=== PATIENT | female | born 1965 | race Caucasian/White ===

== ENCOUNTER 2017-02-17 05:01 | Inpatient (IN) | payer BC ==
[2017-02-08 15:11] LABS: BASO % 0.4 %; BASO ABS # 0.02 K/uL (0-0.2); COMPLETE YES; EOS % 1.3 %; HEMATOCRIT 41.6 % (37-47); IG% 0.2 %; LYMPH ABS # 1.18 K/uL (1.2-3.4); MEAN CELL VOLUME 89.7 fL (80-100); MEAN CORPUSCULAR HGB CONC 33.4 g/dl (32-36); MEAN PLATELET VOLUME 11.4 fL (7.4-10.4); MONO % 8.9 %; NEUT % 64.2 %; PLATELET COUNT 169 K/uL (130-400); RED BLOOD COUNT 4.64 M/uL (4.2-5.4); WHITE BLOOD COUNT 4.72 K/uL (4.8-10.8)
[2017-02-08 15:26] LABS: PROTHROMBIN TIME (PATIENT) 10.2 SECONDS (9.0-12.0)
[2017-02-08 15:31] LABS: ALT/SGPT 32 U/L (12-78); AST/SGOT 14 U/L (15-37); BLOOD UREA NITROGEN 17 mg/dl (7-18); BUN/CREATININE RATIO 16.7 (10-20); CALCIUM 9.2 mg/dl (8.5-10.1); CARBON DIOXIDE 23 mmol/L (21-32); CHLORIDE 109 mmol/L (98-107); CREATININE 0.99 mg/dl (0.60-1.20); GLUCOSE 108 mg/dl (70-99); POTASSIUM 4.4 mmol/L (3.5-5.1); SODIUM 140 mmol/L (136-145)
--- NOTE | 2017-02-08 15:32 | PAT Medication Instructions ---
Service Date Feb 08, 2017. Current Home Medication List Alprazolam (Alprazolam), 0.25 MG PO TID PRN for Anxiety Clobetasol Propionate (Clobetasol Propionate Cream 0.05%), 1 APPLN EXT PRN Epinephrine (Epipen), 0.3 MG IM UD PRN for ALLERGIC REACTION Escitalopram Oxalate (Lexapro), 10 MG PO QAM Fish Oil ([place]-3), 1 CAP PO PRN Fluticasone-Salmeterol 45/21 Mcg (Advair Hfa 45/21 Mcg), 1 PUFF INH BID Hydroxychloroquine Sulfate (Plaquenil), 200 MG PO BID Loratadine (Claritin), 10 MG PO DAILY PRN for Allergies Multiple Vitamins W/ Minerals (Emergen-C Vitamin C), 1 TAB PO PRN Multivitamin (Multivitamin), 1 TAB PO PRN Pantoprazole (Protonix), 40 MG PO BID Medication Instructions For Your Scheduled Surgery - Check with surgeon and brim buster for instructions: Hydroxychloroquine Sulfate (Plaquenil), 200 MG PO BID - Hold the following medications starting 02/08/17: Fish Oil ([place]-3), 1 CAP PO PRN - Hold the following medications 24 hours prior to surgery: Clobetasol Propionate (Clobetasol Propionate Cream 0.05%), 1 APPLN EXT PRN - Hold the following medications the morning of surgery: Loratadine (Claritin), 10 MG PO DAILY PRN for Allergies Multiple Vitamins W/ Minerals (Emergen-C Vitamin C), 1 TAB PO PRN Multivitamin (Multivitamin), 1 TAB PO PRN - Take the following medications the morning of surgery with a sip of water: Pantoprazole (Protonix), 40 MG PO BID Fluticasone-Salmeterol 45/21 Mcg (Advair Hfa 45/21 Mcg), 1 PUFF INH BID Epinephrine (Epipen), 0.3 MG IM UD PRN for ALLERGIC REACTION (if needed) Escitalopram Oxalate (Lexapro), 10 MG PO QAM Alprazolam (Alprazolam), 0.25 MG PO TID PRN for Anxiety (if needed) - Take the following medications as scheduled the night before surgery: Pantoprazole (Protonix), 40 MG PO BID Loratadine (Claritin), 10 MG PO DAILY PRN for Allergies (if needed) Fluticasone-Salmeterol 45/21 Mcg (Advair Hfa 45/21 Mcg), 1 PUFF INH BID Epinephrine (Epipen), 0.3 MG IM UD PRN for ALLERGIC REACTION (if needed) Alprazolam (Alprazolam), 0.25 MG PO TID PRN for Anxiety (if needed) If you have any questions please call us at [phone] or [phone] or [phone]
[2017-02-08 15:34] LABS: ALB/GLOB RATIO 1.3 (0.9-2); ALKALINE PHOSPHATASE 71 U/L (45-117)
[2017-02-17] VITALS (8 sets, daily range): BP systolic 104–122; BP diastolic 57–72; PULSE 88–106; TEMP 36.4–37; O2SAT 90–97; Ht 162.6 cm; Wt 78.4 kg
[~2017-02-17] VITALS: Ht 162.6 cm; Wt 78.4 kg
[~2017-02-17 05:01] MED LIST: CLBCRM30 EXT; EPP3/2 IM; ESCI1TAB9 PO; FLUT45AE INH; HYDR200T5 PO; LORA10TA51 PO; MULT-506 PO; MULT1CHW84 PO; OMEG10007 PO; PANT40TA PO; XNX25 PO
[2017-02-17] MEDS ORDERED: LACTATED RINGER'S 1000ML 1,000 ML IV SCH ×2 (06:00→10:57)
[2017-02-17] MEDS: LACTATED RINGER'S 1000ML 1,000 ML IV SCH (06:00)
[2017-02-17] MEDS ORDERED: CEFAZOLIN 2000MG IV PUSH 10 ML IV SCH (06:00)
[2017-02-17] MEDS ORDERED: ALBUTEROL HFA 8 GM INHALER INH SCH (06:00)
[2017-02-17] MEDS ORDERED: MIDAZOLAM HCL 1 MG/ML 2ML VIAL ONE (06:53)
[2017-02-17] MEDS ORDERED: LIDOCAINE 2% 20 MG/ML 5ML SYR IV ONE (06:53)
[2017-02-17] MEDS ORDERED: ROCURONIUM BROMIDE 10 MG/ML 5 ML VIAL IV ONE ×2 (06:53→08:47)
[2017-02-17] MEDS ORDERED: PROPOFOL IV EMULSION 10 MG/ML 20 ML VIAL IV ONE (06:53)
[2017-02-17] MEDS ORDERED: FENTANYL CITRATE INJ 50 MCG/1 ML 2 ML VIAL ONE ×2 (06:53→10:22)
--- NOTE | 2017-02-17 06:55 | History & Physical Bridge Note ---
H&P Re-Evaluation Bridge Note: I have examined the patient, reviewed the History & Physical and in the interval since the performance of the History & Physical I have noted the following changes of clinical significance: No changes noted
[2017-02-17] MEDS ORDERED: MINERAL OIL LIGHT 10 ML BTL ONE (07:08)
[2017-02-17] MEDS ORDERED: BUPIVACAINE 0.5 % 5 MG/1 ML MPF 30ML VIAL ONE (07:08)
[2017-02-17] MEDS ORDERED: METHYLENE BLUE 0.5% 10 ML VIAL ONE (07:08)
[2017-02-17] MEDS ORDERED: DEXAMETHASONE SOD INJ 4 MG/ML VIAL ONE (08:47)
[2017-02-17] MEDS ORDERED: ONDANSETRON INJ 2 MG/ML 2 ML VIAL ONE (08:47)
[2017-02-17] MEDS ORDERED: GLYCOPYRROLATE INJ 0.2 MG/ML VIAL ONE (08:48)
[2017-02-17] MEDS ORDERED: NEOSTIGMINE METHYLSULFATE 5 MG/5 ML SYR ONE (08:48)
[2017-02-17] MEDS ORDERED: CEFAZOLIN SOD 1 GM VIAL ONE (10:25)
[2017-02-17] MEDS ORDERED: MAGNESIUM HYDROXIDE SUSP 30 ML UDC PO PRN (11:00)
[2017-02-17] MEDS ORDERED: OXYCODONE/ACETAMINOPHEN 5-325 TAB PO PRN ×2 (11:00)
[2017-02-17] MEDS ORDERED: MEPERIDINE HCL 50 MG/ML CARP IV PRN ×2 (11:00)
[2017-02-17] MEDS ORDERED: PROMETHAZINE HCL INJ 25 MG in SODIUM CHLORIDE 0.9% 50ML 50 ML IV PRN (11:00)
[2017-02-17] MEDS ORDERED: ONDANSETRON INJ 2 MG/ML 2 ML VIAL IV PRN (11:00)
[2017-02-17] MEDS ORDERED: ACETAMINOPHEN 325 MG TAB PO PRN (11:00)
[2017-02-17] MEDS ORDERED: PROMETHAZINE HCL INJ 12.5 MG in SODIUM CHLORIDE 0.9% 50ML 50 ML IV PRN ×2 (11:00→11:30)
[2017-02-17] MEDS ORDERED: BISACODYL 10 MG SUPP PR PRN (11:00)
--- NOTE | 2017-02-17 11:01 | [facility] Post Operative Brief Note ---
Immediate Operative Summary Operative Date Feb 17, 2017. Pre-Operative Diagnosis multiple uterine fibroids, right lower quadrant pain and pelvic pain; menopause Post-Operative Diagnosis multiple uterine fibroids, right lower quadrant pain and pelvic pain; menopause Procedure(s) Performed EUA, Total Laparoscopic Hysterectomy, Bilateral Salpingo-Oophorectomy, Cystoscopy; Lysis of Adhesions Surgeon Dr. Keller Soldering Machine Tender Surgeon(s) Dr. Soniya Grimes, Dr. Jorge Parisi Estimated Blood Loss 50mL Findings Enlarged uterus with multiple fibroids Normal tubes and ovaries Specimens A: uterus & Cervix; right Fallopian tube & right ovary; fibroid B: left fallopian tube & left ovary Anesthesia GEAT Complication(s) None Disposition Recovery Room / PACU
[2017-02-17] MEDS ORDERED: HYDROmorphone INJ 2 MG/ML SYR/VIAL ONE (11:16)
[2017-02-17] MEDS ORDERED: HYDROmorphone INJ 1 MG/ML SYR IV PRN (11:30)
[2017-02-17] MEDS ORDERED: FLUMAZENIL 0.1 MG/1 ML 10 ML VIAL IV PRN (11:30)
[2017-02-17] MEDS ORDERED: ATROPINE SULFATE 0.1 MG/ML 5ML SYR IV PRN (11:30)
[2017-02-17] MEDS ORDERED: NURSING VERBAL MED ORDER ONE (11:30)
[2017-02-17] MEDS ORDERED: LABETALOL HCL IV 5 MG/ML 20ML IV PRN (11:30)
[2017-02-17] MEDS ORDERED: NALOXONE HCL 0.4 MG/1 ML VIAL/CARP IV PRN (11:30)
[2017-02-17] MEDS ORDERED: EpHEDrine SULFATE INJ 50 MG/ML AMP IV PRN (11:30)
--- NOTE | 2017-02-17 12:19 | OPERATIVE REPORT ---
DATE OF OPERATION: 02/17/2017 PREOPERATIVE DIAGNOSIS: The patient is a 51-year-old G0 postmenopausal female with multiple uterine fibroids, right lower quadrant pain, pelvic pain. POSTOPERATIVE DIAGNOSIS: Same and adhesions of the descending colon to the left side of pelvic wall. PROCEDURE: Examination under anesthesia, total laparoscopic hysterectomy, bilateral salpingo-oophorectomy, lysis of adhesions and cystoscopy. SURGEON: Dr. Abraham. DIESEL DRAGLINE OPERATOR: Dr. Grimes and Dr. Parisi. ESTIMATED BLOOD LOSS: 50. SPECIMENS: Uterus with fibroids, fallopian tubes and ovaries. ANESTHESIA: General endotracheal. COMPLICATIONS: None. FINDINGS: Examination under anesthesia revealed an irregular shaped uterus with right adnexal fullness and a narrow introitus, intact hymen, and the intraoperative findings enlarged uterus with multiple fibroids. Uterus is about 8 weeks' size. There were multiple subserosal intramural fibroids on the fundus as well as in the posterior wall and there is separate pedunculated subserosal fibroid which was attached to the right lower posterior uterine wall. It was larger than the uterus about 10 x 8 x 6 cm and the fallopian tubes, and ovaries appeared to be normal. There was adhesion of the descending left side colon to the left pelvic sidewall and left side of the abdominal wall. OPERATION AND FINDINGS: PROCEDURE: The patient was taken to the operating room where general anesthesia was given without difficulty. She was placed in dorsal lithotomy position and prepared and draped in usual sterile fashion. Examination under anesthesia was done with the above findings and the speculum was placed in the patient's vagina. Cervix was visualized, grasped with single tooth tenaculum. Uterus was sounded to be 8 cm and then a small VCare manipulator was placed into the uterus and its balloon was inflated and it was checked to be in the uterus. Green cap was attached to the cervix with sutures at 12 and 6 o'clock position and then a blue cap is secured to over the green cap to provide it in its place over the cervix and locked onto the cervix. Then the bladder was placed with a Vaughn catheter. Gloves were changed. Attention was turned to the patient's abdomen where a periumbilical skin incision was made and the incision was carried through underlying layer of fascia with the tip of hemostat. The rectus fascia was visualized, grasped with Kelly clamps x2 and it was punctured with the Veress needle which was attached to a syringe and normal saline was free flowing through the Veress needle and it suctioned clear saline fluid. CO2 gas was attached to the Veress needle. Pneumoperitoneum was obtained with CO2 gas and the abdominal pressure was set to 15 mmHg. Then the Veress needle was removed and ____ trocar was used to enter through the fascia under direct visualization. Abdominal cavity was entered and inspection of the abdomen showed normal upper abdomen, normal bowel surfaces and omentum and the uterus with the above findings. The patient was placed in the Trendelenburg position and then uterus was brought to the midline with the manipulator. Two more trocars were placed on the right and left lower quadrants of the abdomen under direct visualization and then on the right side the right fallopian tube and ovary were visualized and grasped gently. Right infundibulopelvic ligament was identified and it was coagulated 3 times with the LigaSure device and cut and then the incision was brought to the broad ligament, which was already again coagulated and cut with LigaSure device. The uterine artery was skeletonized, peritoneal pieces were cut and coagulated and then broad ligament anteriorly was incised with the LigaSure device and the bladder was taken down gently. Then attention was turned to the left side of the uterus and again left round ligament was identified, grasped with LigaSure device, cut and coagulated x3 and then the incision was brought down to the broad ligament, which was also coagulated and cut with LigaSure device. The right infundibulopelvic ligament was identified, grasped with LigaSure device, coagulated 3 times and cut and then all the adnexa on the left side was brought down with the LigaSure device. The bladder flap was continued until the right side anterior vesicouterine peritoneum was incised with the LigaSure device and the bladder was brought down gently with grasper. Then uterine artery was identified. It was coagulated and cut with the LigaSure device and then it was done on the same right side. Uterine artery was identified, coagulated and cut with the LigaSure device. The ureters were visualized to be peristalsing on both sides during whole surgery. Cardinal ligaments were coagulated and cut with the LigaSure device bilaterally. The extra tissues were cleaned from the cervix and then to have better visualization, the ____ fibroid on the right uterine side was identified, dehisced peddle was coagulated and cut with the LigaSure device. It was left into the pelvis and then we were able to see the posterior vesicouterine ligaments, posterior side of uterus. There was a fibroid on the posterior lower uterus close to the left vesicouterine ligament. It was removed with the grasper and then we were able to feel the edge of the VCare from the vagina and with the tip of the LigaSure device the vagina was incised circumferentially around the cervix. The whole uterus was excised completely and then the uterine manipulator was removed. Vagina was placed with sponge in a glove to provide pneumoperitoneum. Then the uterine cuff was hemostatic. The pelvis was irrigated with warm normal saline and suctioned. Good hemostasis was achieved. The uterus was brought to the vaginal cuff and it was held from vagina with a single tooth tenaculum and it was removed from the vagina without difficulty. The pedunculated fibroid which was larger than the uterus and it was also brought to the vaginal cuff and it was grasped from down in the vagina and then removed from the vagina and they were all sent to pathology. The pelvis was irrigated with warm normal saline and suctioned. The vaginal cuff was repaired with #0 absorbable sutures with EndoStitch device started from right corner, brought to the left corner continuously and Lapra-Tys were placed on the sutures to provide laparoscopic knots. Then the middle of the cuff was sutured again with [id number] stitches to provide better seal and then again cuff was irrigated with warm normal saline and suctioned. All of the pelvis was inspected to be normal. Bowels were inspected to be normal. Adhered colon on the left side of the abdominal and pelvic sidewalls adhesion was gently lysed with laparoscopic scissors close to the abdominal wall and the bowel was brought down to the abdomen. Abdomen and pelvis inspected again to be hemostatic and normal. The patient was given IV methylene blue and then attention was turned to the patient's perineum. Cystoscopy was done with cystoscope and bladder was inspected to be normal. No injuries were seen. Both ureters were visualized to be ejecting urine bilaterally and cystoscopy was ended. The patient was placed with a new Vaughn catheter and then there was noted to be a small first degree laceration in the perineum at 12 o'clock position where the hymenal ring was which was repaired with 3-0 Vicryl in a running fashion. Excellent hemostasis was achieved. Gloves were changed. Attention was turned to the patient's abdomen. Trocars were removed. The fascial incisions were repaired with 0 Vicryl with ____ and the skin incisions were closed with 4-0 Monocryl in a subcuticular fashion. The patient tolerated the procedure well. Sponge, lap, needle and instrument counts were correct x2. The patient was given 2 grams of cefazolin at the beginning of surgery and at the end of her surgery. She was taken to recovery room in stable condition. No complications happened. I was present during whole procedure. I attest to the content of the Intraoperative Record and any orders documented therein. Any exception s are noted below.
[2017-02-17] MEDS ORDERED: OXYC-57 PO (12:43)
[2017-02-17] MEDS ORDERED: METO-157 PO (12:44)
[2017-02-17] MEDS ORDERED: MTR600X PO (12:44)
--- NOTE | 2017-02-17 12:45 | Discharge Instructions ---
Discharge Instructions Date of Service Feb 17, 2017. Admission Reason for Admission: Fibroid Uterus, Pelvic Pain Discharge Discharge Diagnosis / Problem: Total laparoscopic hysterectomy, JOSE C, MONO Discharge Goals Goal(s): Routine recovery after surgery Activity Recommendations Activity Limitations: as noted below Lifting Limitations: no more than 10 pounds Exercise/Sports Limitations: until after follow-up appointment May Resume Sexual Activity: after follow-up appointment (6 weeks) Shower/Bathe: keep incision dry Driving or Machine Use: SPECIAL CARE INSTRUCTIONS: * Check temperature twice daily for one week. Report any elevation over 100.4 degrees Fahrenheit (38.0 degrees Celsius). * Call office in the next few days for return appointment. * You may experience some vaginal spotting and/or bleeding, this is normal for one or two weeks and should not alarm you. * Post-operative discomfort may consist of a sore throat, a "bloated" feeling and pain in the shoulders. These are normal symptoms which usually only last for two or three days. FOLLOW UP VISIT: Keep any scheduled doctor appointments. 2 weeks and 6 weeks . Current Hospital Diet Patient's current hospital diet: Discharge Diet Recommended Diet: Regular Diet Procedures Procedures Performed: EUA, Total Laparoscopic Hysterectomy, Bilateral Salpingo-Oophorectomy, Cystoscopy; Lysis of Adhesions Pending Studies Studies pending at discharge: no Medical Emergencies . Who to Call and When: Medical Emergencies: If at any time you feel your situation is an emergency, please call 911 immediately. . Non-Emergent Contact Non-Emergency issues call your: Surgeon Call Non-Emergent contact if: temperature is above 100.5, your pain is not controlled, your pain is worsening, your pain is unusual for you, wound has increased drainage, wound has increased redness, wound has increased pain, you have any medication questions . . "Provider Documentation" section prepared by Abbie Keller. . VTE Core Measure Inpt VTE Proph given/why not?: Treatment not indicated
--- NOTE | 2017-02-17 12:49 | OB/GYN Progress Note ---
[facility] Progress Note Date of Service: Feb 17, 2017. Postop check Patient is seen and examined Feels well, no complaints," little sore" Pain is under control with meds No CP/ SOB/ Dizziness/ N&V/ VB/ Leg pain Not OOB yet Explained about the surgery and findings Shown her pictures Date Time Temp Pulse Resp B/P (MAP) Pulse Ox O2 Delivery O2 Flow Rate FiO2 02/17/17 11:42 36.4 95 16 119/81 (100) 97 Nasal Cannula 2 02/17/17 11:31 103 14 120/78 92 02/17/17 11:31 103 14 02/17/17 11:26 103 14 02/17/17 11:26 103 14 124/73 92 02/17/17 11:21 100 21 02/17/17 11:21 100 21 126/76 93 02/17/17 11:16 95 20 117/88 99 02/17/17 11:16 96 20 02/17/17 11:11 102 17 114/71 96 02/17/17 11:11 101 17 02/17/17 11:06 101 53 02/17/17 11:06 101 53 119/76 98 02/17/17 11:06 36.8 101 15 119/76 (83) 97 Oxymask 10 02/17/17 05:45 37.0 89 20 112/68 (83) 94 Room Air 8-Hour Column 02/17/17 02/18/17 02/18/17 16:00 00:00 08:00 Intake Total 3800 ml Output Total 800 ml Balance 3000 ml 24-Hour Column 02/18/17 08:00 Intake Total 3800 ml Output Total 800 ml Balance 3000 ml PE: General: Alert, orientedx3, NAD CVS: S1S2 RRR Lungs: CTAB Abd: soft, NT, ND, BS+, Incisions C/D/I No VB Gimenez draining clear urine Ext: NT, no edema, SCD's on AP: 51 yo female s/p EUA, TLH, BSO, Cystoscopy, MONO , pod#0 VSS Afebrile doing well Continue to routine postop care Encourage PO intake, may ambulate D/C gimenez this afternoon Anticipate DC tomorrow
--- NOTE | 2017-02-17 12:54 | Anesthesiology Progress Note ---
Anesthesia Post Op Note Date & Time Feb 17, 2017 at 12:53 Vital Signs Pain Intensity: 0 Vital Signs Past 12 Hours Date Time Temp Pulse Resp B/P (MAP) Pulse Ox O2 Delivery O2 Flow Rate FiO2 02/17/17 11:42 36.4 95 16 119/81 (100) 97 Nasal Cannula 2 02/17/17 11:31 103 14 120/78 92 02/17/17 11:31 103 14 02/17/17 11:26 103 14 02/17/17 11:26 103 14 124/73 92 02/17/17 11:21 100 21 02/17/17 11:21 100 21 126/76 93 02/17/17 11:16 95 20 117/88 99 02/17/17 11:16 96 20 02/17/17 11:11 102 17 114/71 96 02/17/17 11:11 101 17 02/17/17 11:06 101 53 02/17/17 11:06 101 53 119/76 98 02/17/17 11:06 36.8 101 15 119/76 (83) 97 Oxymask 10 02/17/17 05:45 37.0 89 20 112/68 (83) 94 Room Air Notes Mental Status: alert / awake / arousable, participated in evaluation Pt Amnestic to Procedure: Yes Nausea / Vomiting: adequately controlled Pain: adequately controlled Airway Patency, RR, SpO2: stable & adequate BP & HR: stable & adequate Hydration State: stable & adequate Anesthetic Complications: no major complications apparent
[2017-02-17] MEDS: IBUPROFEN 600 MG TAB PO PRN (15:08)
[2017-02-17 20:36] LABS: HEMATOCRIT 35.6 % (37-47)
[2017-02-17] MEDS: DOCUSATE SODIUM 100 MG CAP PO SCH (21:00)
[2017-02-17] MEDS: KETOROLAC TROMETHAMINE 30 MG/ML VIAL IV. PRN (21:20)
--- NOTE | 2017-02-17 21:57 | OB/GYN Progress Note ---
PICK UP ATTENDANT Progress Note Date of Service: Feb 17, 2017. Patient is seen and examined Feels better, no complaints, just tired Pain is under control with meds, Received Demerol at 5 pm and then Toradol 30 min ago. No CP/ SOB/ Dizziness/ N&V/ VB/ Leg pain Not OOB yet Tolerating clears, ice cream Vomited Motrin She is uncomfortable with gimenez Desires to be d/c'd tonight Date Time Temp Pulse Resp B/P (MAP) Pulse Ox O2 Delivery O2 Flow Rate FiO2 02/17/17 15:15 36.7 106 20 122/72 (89) 97 Room Air 02/17/17 15:15 97 Room Air 02/17/17 14:15 37.0 95 20 109/65 (80) 94 Room Air 02/17/17 13:15 36.4 99 18 111/64 (80) 92 Room Air 02/17/17 12:45 36.7 94 18 119/71 (87) 93 Room Air 02/17/17 12:15 90 Room Air 02/17/17 12:15 36.6 93 16 120/70 (87) 90 Room Air 02/17/17 12:15 90 Room Air 02/17/17 11:42 36.4 95 16 119/81 (100) 97 Nasal Cannula 2 02/17/17 11:31 103 14 120/78 92 02/17/17 11:31 103 14 02/17/17 11:26 103 14 02/17/17 11:26 103 14 124/73 92 02/17/17 11:21 100 21 02/17/17 11:21 100 21 126/76 93 02/17/17 11:16 95 20 117/88 99 02/17/17 11:16 96 20 02/17/17 11:11 102 17 114/71 96 02/17/17 11:11 101 17 02/17/17 11:06 101 53 02/17/17 11:06 101 53 119/76 98 02/17/17 11:06 36.8 101 15 119/76 (83) 97 Oxymask 10 02/17/17 05:45 37.0 89 20 112/68 (83) 94 Room Air Last VS: 1954: 36.9, P: 96, 113/68, R 18 8-Hour Column 02/17/17 02/18/17 02/18/17 16:00 00:00 08:00 Intake Total 4000 ml Output Total 1175 ml Balance 2825 ml 24-Hour Column 02/18/17 08:00 Intake Total 4000 ml Output Total 1175 ml Balance 2825 ml PE: General: Alert, orientedx3, NAD CVS: S1S2 RRR Lungs: CTAB Abd: soft, NT, ND, BS+, Incisions C/D/I No VB Ext: NT, no edema, SCD's on Last 24 Hours Test 02/17/17 06:27 02/17/17 20:21 Bedside Urine Test NEG Hemoglobin 12.6 g/dL Hematocrit 35.6 % AP: 51 yo female s/p EUA, TLH, BSO, MONO, Cysto , pod#0 VSS Afebrile doing well Continue to routine postop care Encourage PO intake, may ambulate D/C gimenez tonight Anticipate DC tomorrow
[2017-02-18 02:10] VITALS: BP 104/57; PULSE 88; TEMP 37; O2SAT 95
[2017-02-18 03:25] VITALS: BP 110/69; PULSE 81; TEMP 36.7; O2SAT 93
[2017-02-18] MEDS: KETOROLAC TROMETHAMINE 30 MG/ML VIAL IV. PRN (03:59)
[2017-02-18] MEDS ORDERED: NURSING DECISION MEDICATION ORDER SCH (05:15)
[2017-02-18 06:26] LABS: BASO % 0.1 %; BASO ABS # 0.01 K/uL (0-0.2); COMPLETE YES; EOS % 0.2 %; HEMATOCRIT 34.4 % (37-47); IG% 0.3 %; LYMPH % 22.1 %; LYMPH ABS # 2.19 K/uL (1.2-3.4); MEAN CELL VOLUME 88.9 fL (80-100); MEAN CORPUSCULAR HGB CONC 34.9 g/dl (32-36); MEAN PLATELET VOLUME 10.8 fL (7.4-10.4); MONO % 9.1 %; NEUT % 68.2 %; PLATELET COUNT 185 K/uL (130-400); RED BLOOD COUNT 3.87 M/uL (4.2-5.4)
[2017-02-18 06:57] LABS: BUN/CREATININE RATIO 16.5 (10-20); CALCIUM 8.7 mg/dl (8.5-10.1); CREATININE 0.94 mg/dl (0.60-1.20); POTASSIUM 3.8 mmol/L (3.5-5.1)
[2017-02-18 07:01] VITALS: BP 110/68; PULSE 87; TEMP 36.7; O2SAT 95
[2017-02-18] MEDS: LACTATED RINGER'S 1000ML 1,000 ML IV SCH (07:08)
[2017-02-18] MEDS: DOCUSATE SODIUM 100 MG CAP PO SCH (07:36)
[2017-02-18] MEDS ORDERED: DOCUSATE SODIUM 100 MG CAP PO SCH (09:00)
[2017-02-18] MEDS: IBUPROFEN 600 MG TAB PO PRN (09:37)
--- NOTE | 2017-02-18 10:58 | Surgery Progress Note ---
Surgery Progress Note Date of Service Feb 18, 2017. Subjective Post OP Day: 1 + feeling well, + flatus Doing much better this morning. Nausea is completely gone. Pain much better as well and only using ibuprofen for pain control at this time. Vaginal bleeding minimal. Incisions are clean, dry and intact. Tolerating regular diet, +flatus, -BM. Would like to go home today. Objective Vital Signs: Date Time Temp Pulse Resp B/P (MAP) Pulse Ox O2 Delivery O2 Flow Rate FiO2 02/18/17 07:30 Room Air 02/18/17 07:01 36.7 87 16 110/68 (82) 95 02/18/17 03:25 36.7 81 16 110/69 (83) 93 Room Air 02/18/17 02:15 Room Air 02/18/17 02:10 37.0 88 18 95 02/17/17 23:25 95 Room Air 02/17/17 23:25 37.0 88 18 104/57 (73) 95 Room Air 02/17/17 19:55 36.9 96 18 113/68 (83) 94 Room Air 02/17/17 15:15 36.7 106 20 122/72 (89) 97 Room Air 02/17/17 15:15 97 Room Air 02/17/17 14:15 37.0 95 20 109/65 (80) 94 Room Air 02/17/17 13:15 36.4 99 18 111/64 (80) 92 Room Air 02/17/17 12:45 36.7 94 18 119/71 (87) 93 Room Air 02/17/17 12:15 90 Room Air 02/17/17 12:15 36.6 93 16 120/70 (87) 90 Room Air 02/17/17 12:15 90 Room Air 02/17/17 11:42 36.4 95 16 119/81 (100) 97 Nasal Cannula 2 02/17/17 11:31 103 14 120/78 92 02/17/17 11:31 103 14 02/17/17 11:26 103 14 02/17/17 11:26 103 14 124/73 92 02/17/17 11:21 100 21 02/17/17 11:21 100 21 126/76 93 02/17/17 11:16 95 20 117/88 99 02/17/17 11:16 96 20 02/17/17 11:11 102 17 114/71 96 02/17/17 11:11 101 17 02/17/17 11:06 101 53 02/17/17 11:06 101 53 119/76 98 02/17/17 11:06 36.8 101 15 119/76 (83) 97 Oxymask 10 General Appearance: WD/WN, no apparent distress Respiratory/Chest: chest non-tender, lungs clear Cardiovascular: regular rate, rhythm Abdomen: normal bowel sounds, soft Incision(s): clean, dry, intact Extremities: normal range of motion, non-tender, no calf tenderness Laboratory Results: Results Past 24 Hours Test 02/17/17 20:21 02/18/17 06:03 Range/Units Hemoglobin 12.6 12.0 12.0-16.0 g/dL Hematocrit 35.6 34.4 37-47 % White Blood Count 9.90 4.8-10.8 K/uL Red Blood Count 3.87 4.2-5.4 M/uL Mean Corpuscular Volume 88.9 80-100 fL Mean Corpuscular Hemoglobin 31.0 25-34 pg Mean Corpuscular Hemoglobin Concent 34.9 32-36 g/dl Platelet Count 185 130-400 K/uL Mean Platelet Volume 10.8 7.4-10.4 fL Neutrophils (%) (Auto) 68.2 % Lymphocytes (%) (Auto) 22.1 % Monocytes (%) (Auto) 9.1 % Eosinophils (%) (Auto) 0.2 % Basophils (%) (Auto) 0.1 % Neutrophils # (Auto) 6.75 1.4-6.5 K/uL Lymphocytes # (Auto) 2.19 1.2-3.4 K/uL Monocytes # (Auto) 0.90 0.11-0.59 K/uL Eosinophils # (Auto) 0.02 0-0.5 K/uL Basophils # (Auto) 0.01 0-0.2 K/uL RDW Standard Deviation 42.0 36.4-46.3 fL RDW Coefficient of Variation 13.0 11.5-14.5 % Immature Granulocyte % (Auto) 0.3 % Immature Granulocyte # (Auto) 0.03 0.00-0.02 K/uL Sodium Level 138 136-145 mmol/L Potassium Level 3.8 3.5-5.1 mmol/L Chloride Level 106 98-107 mmol/L Carbon Dioxide Level 24 21-32 mmol/L Anion Gap 8.0 3-11 mmol/L Blood Urea Nitrogen 15 7-18 mg/dl Creatinine 0.94 0.60-1.20 mg/dl Est Creatinine Clear Calc Drug Dose 70.1 ml/min Estimated GFR () 80.3 Estimated GFR (Non- 69.3 BUN/Creatinine Ratio 16.5 10-20 Random Glucose 102 70-99 mg/dl Calcium Level 8.7 8.5-10.1 mg/dl Assessment & Plan POD # 1 s/p TLH with BSO, cystoscopy -Will discharge home today. -F/U in 1-2 weeks as scheduled.
[2017-02-18 11:26] VITALS: BP 110/68; PULSE 87; TEMP 36.7; O2SAT 95
== END 2017-02-18 12:02 | disposition home or self-care (01) | DRG 743 ==
LOC: C.ACU 05:01 → C.MS4N 05:15 → ENRESERV 12:15 → C.3E 02-18 02:19
PROVIDERS: ADMIT Obstetrics & Gynecology; ATTEND Obstetrics & Gynecology
PROC: 0UT20ZZ Resection of Bilateral Ovaries, Open Approach (ICD-10-PCS; principal; 2017-02-17 07:00)
PROC: 0UT90ZZ Resection of Uterus, Open Approach (ICD-10-PCS; principal; 2017-02-17 07:00)
PROC: 0UT70ZZ Resection of Bilateral Fallopian Tubes, Open Approach (ICD-10-PCS; principal; 2017-02-17 07:00)
PROC: 0UTC0ZZ Resection of Cervix, Open Approach (ICD-10-PCS; principal; 2017-02-17 07:00)
DX: D25.2 Subserosal leiomyoma of uterus (principal); D25.1 Intramural leiomyoma of uterus